=== PATIENT | female | born 1945 | race Caucasian/White ===

== ENCOUNTER 2021-01-15 16:16 | Emergency (ER) | payer MEDICARE, OTHER ==
--- NOTE | 2021-01-15 18:22 | EDM.PDOC ---
ED HPI GENERAL MEDICAL PROBLEM - General Chief Complaint: Cardiovascular Problem Stated Complaint: WEAKNESS Time Seen by Provider: 01/15/21 18:00 Source of Information: Reports: Patient History Limitations: Reports: No Limitations - History of Present Illness INITIAL COMMENTS - FREE TEXT/NARRATIVE: Alison is a 75-year-old female presenting to the ED for evaluation of near syncope. Patient was in her usual state of health visiting [place], [place] and was in a caf when she suddenly started to feel lightheaded, nauseous, and generally weak. She sat down and the symptoms continued. She felt like she was going out so she put her head down. She did become hot and diaphoretic at that time. The patient's son states that they were outside walking in [place] in the direct sunlight with very little wind. The patient had not been drinking much fluid and is diabetic. EMS was called and her blood sugar at the scene was 165 mg/dL. Patient was given a couple glasses of water and started to feel better. She reports she had a similar episode about 6 months ago but they were unable to determine a cause. Her diabetes follows as a complication from her heart surgery. She was told that she is insulin deficient and not insulin resistant. - Related Data Allergies Allergy/AdvReac Type Severity Reaction Status Date / Time lisinopril Allergy Cough Verified 01/15/21 16:28 diabetic med Allergy Tachycardia Uncoded 01/15/21 16:28 Home Meds: Home Meds Apixaban [Eliquis] 5 mg PO BID 01/15/21 [History] Aspirin [Halfprin] 81 mg PO BEDTIME 01/15/21 [History] Dapagliflozin Propanediol [Farxiga] 10 mg PO DAILY 01/15/21 [History] Famotidine [Pepcid] 20 mg PO BID 01/15/21 [History] Furosemide [Lasix] 20 mg PO DAILY 01/15/21 [History] Insulin Isophane NPH, Human [NovoLIN N] 0 unit SQ ASDIRECTED 01/15/21 [History] Losartan [Cozaar] 50 mg PO DAILY 01/15/21 [History] Metoprolol Succinate [Toprol Xl] 50 mg PO BID 01/15/21 [History] Spironolactone [Aldactone] 12.5 mg PO DAILY 01/15/21 [History] atorvaSTATin [Lipitor] 20 mg PO DAILY 01/15/21 [History] metFORMIN [Glucophage XR] 500 mg PO DAILY 01/15/21 [History] Past Medical History Cardiovascular History: Reports: Afib, Bypass, CAD, Heart Murmur, Heart Valve Replacement, High Cholesterol, Hypertension, Pacemaker, Syncope Respiratory History: Reports: Bronchitis, Recurrent, Pneumonia, Recurrent Gastrointestinal History: Reports: Cholelithiasis, Gastritis Genitourinary History: Reports: None [employer]IST History: Reports: , Other (See Below) 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 Musculoskeletal History: Reports: Osteoarthritis Neurological History: Reports: None Psychiatric History: Reports: None Endocrine/Metabolic History: Reports: Diabetes, Type II Hematologic History: Reports: B12 Deficiency Immunologic History: Reports: None Oncologic (Cancer) History: Reports: None Dermatologic History: Reports: None - Infectious Disease History Infectious Disease History: Reports: Chicken Pox, Measles Other Infectious Disease History: covid vacc x2 - Past Surgical History HEENT Surgical History: Reports: Adenoidectomy, Tonsillectomy Cardiovascular Surgical History: Reports: Coronary Artery Bypass, Other (See Below) Other Cardiovascular Surgeries/Procedures: valve rplacement GI Surgical History: Reports: Cholecystectomy, Colonoscopy Female Surgical History: Reports: Hysterectomy Social & Family History - Tobacco Use Tobacco Use Status *Q: Current Some Day Tobacco User Years of Tobacco use: 50 Packs/Tins Daily: 0.5 - Caffeine Use Caffeine Use: Reports: None - Recreational Drug Use Recreational Drug Use: No ED ROS GENERAL - Review of Systems Review Of Systems: See Below Constitutional: Reports: Weakness (Generalized), Diaphoresis HEENT: Reports: No Symptoms Respiratory: Reports: No Symptoms Cardiovascular: Reports: No Symptoms Endocrine: Reports: No Symptoms GI/Abdominal: Reports: Nausea : Reports: No Symptoms Musculoskeletal: Reports: No Symptoms Skin: Reports: No Symptoms Neurological: Reports: Syncope (Near syncope), Weakness (Generalized weakness) Psychiatric: Reports: No Symptoms Hematologic/Lymphatic: Reports: No Symptoms Immunologic: Reports: No Symptoms ED EXAM, GENERAL - Physical Exam Exam: See Below Exam Limited By: No Limitations General Appearance: Alert, No Apparent Distress Eye Exam: Bilateral Eye: EOMI, PERRL Throat/Mouth: Normal Inspection, Normal Oropharynx, Normal Voice, No Airway Compromise Head: Atraumatic, Normocephalic Neck: Normal Inspection, Supple, Non-Tender, Full Range of Motion Respiratory/Chest: No Respiratory Distress, Lungs Clear, Normal Breath Sounds Cardiovascular: Normal Peripheral Pulses, Regular Rate, Rhythm, No Murmur Peripheral Pulses: 2+: Radial (L), Radial (R) GI/Abdominal: Normal Bowel Sounds, Soft, Non-Tender Neurological: Alert, Oriented, Normal Cognition, No Motor/Sensory Deficits Psychiatric: Normal Affect, Normal Mood Skin Exam: Warm, Dry, Intact Lymphatic: No Adenopathy #1 Interpretation EKG Date: 01/15/21 Time: 18:14 Rhythm: Other (Atrial sensed, ventricular paced rhythm with a rate of 63 bpm.) Rate (Beats/Min): 63 [place]: LAD-Left [place] Deviation P-Wave: Present QRS: Wide ST-T: Normal QT: Prolonged Comparison: NA - No Prior EKG Course - Vital Signs Last Recorded V/S: Last Vital Signs Temp 36.3 C 01/15/21 16:22 Pulse 65 01/15/21 16:43 Resp 20 01/15/21 16:22 BP 147/69 H 01/15/21 16:43 Pulse Ox 94 L 01/15/21 16:43 - Orders/Labs/Meds Orders: Active Orders 24 hr Category Date Time Status EKG Documentation Completion [RC] ASDIRECTED Care 01/15/21 17:38 Active EKG 12 Lead [EK] Routine Ther 01/15/21 17:38 Ordered Labs: Laboratory Tests 01/15/21 01/15/21 01/15/21 Range/Units 18:24 18:31 18:31 WBC 10.9 (4.5-11.0) K/uL RBC 3.77 (3.30-5.50) M/uL Hgb 12.3 (12.0-15.0) g/dL Hct 36.2 (36.0-48.0) % MCV 96 (80-98) fL MCH 33 H (27-31) pg MCHC 34 (32-36) % Plt Count 243 (150-400) K/uL Neut % (Auto) 69.5 H (36-66) % Lymph % (Auto) 21.4 L (24-44) % [place] % (Auto) 6.3 H (2-6) % Eos % (Auto) 2.5 (2-4) % Baso % (Auto) 0.3 (0-1) % Sodium 139 L (140-148) mmol/L Potassium 4.4 (3.6-5.2) mmol/L Chloride 100 (100-108) mmol/L Carbon Dioxide 30 (21-32) mmol/L Anion Gap 13.4 (5.0-14.0) mmol/L BUN 18 (7-18) mg/dL Creatinine 1.0 (0.6-1.0) mg/dL Est Cr Clr Drug Dosing 40.68 mL/min Estimated GFR (MDRD) 54 L (>60) Glucose 148 H (74-106) mg/dL Calcium 9.8 (8.5-10.1) mg/dL Magnesium 2.1 (1.8-2.4) mg/dL Urine Color Yellow (YELLOW) Urine Appearance Clear (CLEAR) Urine pH 6.0 (5.0-8.0) Ur Specific [place]e 1.010 (1.008-1.030) Urine Protein Negative (NEGATIVE) mg/dL Urine Glucose (UA) 500 H (NEGATIVE) mg/dL Urine Ketones Negative (NEGATIVE) mg/dL Urine Occult Blood Negative (NEGATIVE) Urine Nitrite Negative (NEGATIVE) Urine Bilirubin Negative (NEGATIVE) Urine Urobilinogen 0.2 (0.2-1.0) EU/dL Ur Leukocyte Esterase Negative (NEGATIVE) - Re-Assessments/Exams Free Text/Narrative Re-Assessment/Exam: 01/15/21 19:26 by description, it appears the patient may have had a vasovagal near syncopal episode. This is likely what caused her syncope 6 months ago as well. Her EKG shows an atrial sensed ventricular paced rhythm with a rate of 63 bpm. Labs were reviewed and she has a normal CBC and comprehensive metabolic panel. Her sugar is 148. Her calcium is 9.8 with a magnesium of 2.1. Urinalysis was obtained and is dilute with a specific gravity of 1.010, however, I believe that she likely is volume depleted and has been recently pushing fluids to place that. Is likely the cause of her dilute urine at this time. At this time, I believe she is suitable for discharge home in satisfactory condition. Departure - Departure Time of Disposition: 19:28 Disposition: Home, Self-Care 01 Clinical Impression: Vasovagal near syncope Instructions: Near-Syncope, [id number] Referrals: PCP,None [Primary Care Provider] - Forms: ED Department Discharge Care Plan Goals: Your labs today look great. Your EKG shows a paced rhythm. Again this is likely vasovagal syncope. Good hydration will lessen the likelihood of this recurring. Please return to the ED should you have any concerns. Sepsis Event Note (ED) - Evaluation Sepsis Screening Result: No Definite Risk - Focused Exam Vital Signs: Vital Signs Temp Pulse Resp BP Pulse Ox 01/15/21 16:43 65 147/69 H 94 L 01/15/21 16:22 36.3 C 66 20 139/60 96 01/15/21 16:18 36.3 C 66 20 139/60 96 - Problem List & Annotations (1) Vasovagal near syncope SNOMED Code(s): 619345629 Code(s): R55 - SYNCOPE AND COLLAPSE Status: Acute Priority: Medium Current Visit: Yes - Problem List Review Problem List Initiated/Reviewed/Updated: Yes
== END 2021-01-15 19:53 | disposition home or self-care (01) ==
LOC: JP.ED 16:16
DX: R55 Syncope and collapse (principal); I48.91 Unspecified atrial fibrillation; I25.10 Atherosclerotic heart disease of native coronary artery without angina pectoris; E78.00 Pure hypercholesterolemia, unspecified; I10 Essential (primary) hypertension; E11.9 Type 2 diabetes mellitus without complications; Z79.82 Long term (current) use of aspirin; Z79.01 Long term (current) use of anticoagulants; Z79.4 Long term (current) use of insulin; Z79.899 Other long term (current) drug therapy; Z95.0 Presence of cardiac pacemaker
CPT/HCPCS: 36415; 80048; 81003; 83735; 85025; 93005; 93010; 99283; 99285-25